=== PATIENT | male | born 1960 | race Caucasian/White ===

== ENCOUNTER 2017-06-22 09:04 | Outpatient (CLI) | payer OTHER ==
[~2017-06-22 09:04] MED LIST: HUMALOG100 U/ML; HYZAAR 100-251 UDTAB PO; JANUMET XR 50-1 EAC1 PO; LANTUS SOLOSTAR3 ML; OMEPRAZOLE20 MG PO; PERCOCET 5-3251 EACH PO; PRILOSEC10 M2 PO; ZANTAC300 MG PO
== END 2017-06-22 09:18 | disposition home or self-care (01) ==
LOC: RX STUDY 09:04
DX: C20 Malignant neoplasm of rectum (principal); R59.0 Localized enlarged lymph nodes; K62.5 Hemorrhage of anus and rectum; Z93.2 Ileostomy status

== ENCOUNTER 2017-06-29 09:00 | Inpatient (IN) | payer OTHER ==
[~2017-06-29] VITALS: Ht 175.3 cm; Wt 78.5 kg
== END 2017-07-08 15:18 | disposition home or self-care (01) | DRG 940 ==
LOC: SURH 07-05 07:00 → O/R 07-05 08:25 → SURH 07-05 09:00
PROVIDERS: Surgery
PROC: 0DQB4ZZ Repair Ileum, Percutaneous Endoscopic Approach (ICD-10-PCS; principal; 2017-07-05 07:00)
DX: Z93.2 Ileostomy status (principal); C20 Malignant neoplasm of rectum; D62 Acute posthemorrhagic anemia; I10 Essential (primary) hypertension; E11.42 Type 2 diabetes mellitus with diabetic polyneuropathy

== ENCOUNTER 2017-12-26 06:43 | Day surgery (SDC) | payer OTHER | END 2017-12-26 11:30 | disposition home or self-care (01) | LOC: AMB-ENDOS 06:43 | DX: C20 Malignant neoplasm of rectum (principal) ==

== ENCOUNTER 2019-04-30 07:06 | Day surgery (SDC) | payer OTHER | END 2019-04-30 12:00 | disposition home or self-care (01) | LOC: AMB-ENDOS 07:06 | DX: C20 Malignant neoplasm of rectum (principal) ==

== ENCOUNTER → 2020-06-30 08:00 | Outpatient (CLI) | payer OTHER | END | disposition home or self-care (01) | LOC: LAB 08:00 → ADM 12:15 → AMB-ENDOS 07-07 12:15 → EDSTATUS 07-07 12:15 | PROVIDERS: ATTEND Surgery | DX: U07.1 COVID-19 (principal); C20 Malignant neoplasm of rectum; R59.0 Localized enlarged lymph nodes; K62.5 Hemorrhage of anus and rectum; Z93.2 Ileostomy status ==

== ENCOUNTER 2020-09-08 07:37 | Day surgery (SDC) | payer OTHER | END 2020-09-08 11:55 | disposition home or self-care (01) | LOC: AMB-ENDOS 07:37 | PROVIDERS: ATTEND Surgery | DX: K63.5 Polyp of colon (principal) ==